=== PATIENT | male | born 1975 | race Caucasian/White ===

== ENCOUNTER 2020-06-30 11:50 | Emergency (ER) | payer BC ==
[~2020-06-30] VITALS: Ht 172.7 cm; Wt 79.4 kg
[2020-06-30 12:14] VITALS: BP_SYST 114
--- NOTE | 2020-06-30 12:17 | NUR ---
BIB [facility] FROM [facility], ABLE TO GET INTO W/C
--- NOTE | 2020-06-30 13:00 | NUR ---
DR. VAUGHN EXAMING. PT IN [facility]
[2020-06-30] MEDS ORDERED: HYDROcodone/ACETAMIN 5-325 MG TAB (NORCO/ VICODIN) PO ONE (13:30)
[2020-06-30] MEDS ORDERED: KETOROLAC TROMETHAMINE 15 MG VIAL IM ONE (13:30)
[2020-06-30 14:50] VITALS: BP_SYST 135
--- NOTE | 2020-06-30 14:50 | NUR ---
Patient given written and verbal discharge instructions and verbalizes understanding. ER MD discussed with patient the results and treatment provided. Patient in stable condition. ID arm band removed. Rx of NORCO given. Patient educated on pain management and to follow up with PMD. Pain Scale 0/10. Opportunity for questions provided and answered. Medication side effect fact sheet provided.
== END 2020-06-30 14:50 | disposition home or self-care (01) ==
LOC: SED 11:50
DX: S39.012A Strain of muscle, fascia and tendon of lower back, initial encounter (principal); X50.3XXA Overexertion from repetitive movements, initial encounter; Y93.89 Activity, other specified; Y92.89 Other specified places as the place of occurrence of the external cause; Y99.8 Other external cause status
CPT/HCPCS: 96372; 99283; J1885